=== PATIENT | male | born 1985 | race Caucasian/White ===

== ENCOUNTER 2019-05-24 23:38 | Emergency (ER) | payer SELFPAY ==
[~2019-05-24] VITALS: Ht 172.7 cm; Wt 70.8 kg
[2019-05-24 23:51] VITALS: BP 125/91
--- NOTE | 2019-05-25 00:01 | NUR ---
PT AMBULATED TO BED 02.
[2019-05-25] MEDS ORDERED: LIDOCAINE 1% 500 MG/50 ML VIAL INJ SCH (00:10)
--- NOTE | 2019-05-25 00:20 | NUR ---
ER-MD CAME BY BEDSIDE TO EVALUATE PT.
--- NOTE | 2019-05-25 00:30 | NUR ---
REPAIR OF LACERATION TO THE RIGHT EYEBROW STARTED.
--- NOTE | 2019-05-25 00:40 | NUR ---
REPAIR OF LACERATION WITH 6 STITCHES COMPLETED. PT.TOLERATED PROCEDURE WELL.
[2019-05-25] MEDS ORDERED: LIDOCAINE MPF 1% - 5 mL VIAL 10 ML ONE (00:43)
[2019-05-25] MEDS ORDERED: NEOMYCIN/POLYMYXIN/BACITRACIN 0.9 GM/1 PKT TP ONE (00:45)
--- NOTE | 2019-05-25 00:53 | NUR ---
WOUND DRESSING DONE BY ER SPICE MILLER.
--- NOTE | 2019-05-25 00:53 | NUR ---
NEOSPORAN PLACED ON PTS EYE BROW WOUND THEN COVERED WITH A NON ADHESIVE GAUZE
--- NOTE | 2019-05-25 01:04 | NUR ---
DISCHARGED STABLE. PRESCRIPTION,VERBAL AND WRITTEN AFTERCARE INSTRUCTIONS GIVEN TO PATIENT AND FAMILY. VERBALIZED UNDERSTANDING.
[2019-05-25 01:11] VITALS: BP 112/58
== END 2019-05-25 01:04 | disposition home or self-care (01) ==
LOC: MED 23:38
DX: S01.112A Laceration without foreign body of left eyelid and periocular area, initial encounter (principal); W06.XXXA Fall from bed, initial encounter; Y93.84 Activity, sleeping; Y92.89 Other specified places as the place of occurrence of the external cause; Y99.8 Other external cause status
CPT/HCPCS: 12011; 99283; J2001